=== PATIENT | female | born 1985 | race African-American/Black ===

== ENCOUNTER 2019-06-10 09:17 | Outpatient (RCR) | payer OTHER, MEDICAID, SELFPAY | END 2019-09-08 23:59 | disposition home or self-care (01) | LOC: ANHDMC 09:17 | PROVIDERS: PCP Internal Medicine; Visit Provider Internal Medicine | DX: E11.9 Type 2 diabetes mellitus without complications (principal); Z71.89 Other specified counseling | CPT/HCPCS: G0108 ==

== ENCOUNTER 2019-10-07 11:30 | Emergency (ER) | payer OTHER, MEDICAID, SELFPAY ==
[2019-10-07 11:43] VITALS: BP 123/75; PULSE 104; RESP 19; TEMP 36.7; O2SAT 100
[2019-10-07 12:11] LABS: Add Urine Microscopic? YES; Appearance Urine Clear (Clear); Bilirubin Urine Negative (Negative); Blood Urine Negative (Negative); Color Urine Straw (Yellow); Glucose Urine UA Negative (Negative); Ketones Urine Negative (Negative); Leukocyte Esterase Ur Trace LEU/UL (Negative); Mucus Urine Rare /lpf; Nitrate Urine Negative (Negative); Protein Urine Negative (Negative); Specific Grav Ur 1.014 (1.001-1.035); Squamous Epithelial Cell Urine Many /hpf (Few); Urobilinogen Urine Negative mg/dL (<2.0)
[2019-10-07 12:16] LABS: Basophils Percent Auto 0.3 % (0.2-1.2); Eosinophils Percent Auto 0.2 % (0-4.4); Immature Granulocyte Absolute 0.05 K/mm3 (0.00-0.031); Immature Granulocyte Percent A 0.5 % (0-0.5); Lymphocytes Absolute Auto 1.78 K/mm3 (0.9-3.2); Lymphocytes Percent Auto 16.1 % (18.3-44.2); Mean Corpuscular HGB Conc 32.5 g/dl (32-36); Mean Corpuscular Hemoglobin 28.1 pg (26-34); Mean Corpuscular Volume 86.6 fl (80-100); Mean Platelet Volume 10.3 fl (7.4-10.4); Monocytes Absolute Auto 1.1 K/mm3 (0.1-0.6); Monocytes Percent Auto 9.6 % (2.6-8.5); Neutrophils Absolute Auto 8.1 K/mm3 (1.3-6.7); Neutrophils Percent Auto 73.3 % (45.5-73.1); Platelet Count Result 277 k/mm3 (150-375); Red Blood Count 4.62 M/mm3 (4.2-5.4); Red Cell Distribution Width 14.5 % (11.5-14.5); White Blood Count 11.1 K/mm3 (4.5-10.0)
--- NOTE | 2019-10-07 12:27 | ED.ABDPAIN ---
HPI - Abdominal Pain General Chief Complaint: Back Pain/Injury Stated Complaint: R Side Pain Time Seen by Provider: 10/07/19 11:32 Source: patient Mode of arrival: ambulatory Limitations: no limitations History of Present Illness HPI narrative: Patient is a 34-year-old female who presents to emergency department for evaluation of pain to the right lower back that began yesterday noticed an aching pain worse with activity and movement denies injury trauma or recent illness took naproxen and muscle relaxer with minimal improvement patient on arrival in the room in no distress Related Data Home Medications Medication Instructions Recorded Confirmed atorvastatin 20 mg PO DAILY 07/25/19 07/25/19 metformin 500 mg PO BID 07/25/19 07/25/19 norgestimate-ethinyl estradiol 1 tablet PO DAILY 07/25/19 07/25/19 [Previfem] spironolactone 100 mg PO DAILY 07/25/19 07/25/19 tranexamic acid 650 mg tablet 1,300 mg PO TID tablet 10/05/19 Allergies Allergy/AdvReac Type Severity Reaction Status Date / Time No Known Allergies Allergy Verified 10/05/19 09:38 Review of Systems Review of Systems: All systems reviewed & are unremarkable except as noted in HPI and below PMFSH Past Medical History Medical History (Updated 10/07/19 @ 13:09 by Ha Arshad PA-C) Diabetes mellitus Social History Social History Smoking status: Never smoker Second hand tobacco smoke exposure: No Alcohol intake: current Substance use: never Gender identity (if verbalized by the patient): Female Exam Narrative: Exam Narrative: GENERAL: Well-appearing, morbidly obese, and in no acute distress. HEAD: Normocephalic, atraumatic. EYES: PERRLA and EOMI. ENT: Nares clear, no rhinorrhea or epistaxis. Mucous membranes moist. Oropharynx without tonsillar hypertrophy exudate or other lesions. CHEST: Clear to auscultation. No respiratory distress. No wheezes rales or rhonchi HEART: Regular rate and rhythm. No murmur heard. Normal peripheral pulses. ABDOMEN: Soft, nontender, nondistended EXTREMITIES: Normal range of motion. No edema. SKIN: Warm, dry, no rash. NEURO: No focal deficits. Alert and oriented x3. Cranial nerves II through XII grossly intact. Normal speech and gait PSYCH: Normal mood and affect. Course Course Emergency Course: Patient in the room in no distress aware of case findings treatment plan and diagnosis agreeing to follow-up as directed or to return if symptoms worsen or concerns Vital Signs Vital signs: Vital Signs Temperature 98.1 F 10/07/19 11:43 Pulse Rate 104 H 10/07/19 11:43 Respiratory Rate 19 10/07/19 11:43 Blood Pressure 123/75 10/07/19 11:43 Pulse Oximetry 100 10/07/19 11:43 Temperature 98.1 F 10/07/19 11:43 Pulse Rate 104 H 10/07/19 11:43 Respiratory Rate 19 10/07/19 11:43 Blood Pressure 123/75 10/07/19 11:43 Pulse Oximetry 100 10/07/19 11:43 MDM - Abdominal Pain MDM Narrative Medical decision making narrative: Patient is afebrile nontoxic-appearing no distress felt appropriate for outpatient reevaluation. Patients pain is positional in nature and localized to back without signs of cord compression or cauda equina based on neurological exam, skeletal exam and history. No fever or other significant factors to suggest osteomyelitis or spinal epidural abscess. No symptoms or signs to suggest pain is referred from abdominal or / cardiopulmonary sources. No pulsatile masses noted on exam. Patient ambulates with steady gait and is stable for outpatient management given case findings. Lab Data Result diagrams: 10/07/19 12:12 10/07/19 12:12 Labs: Lab Results 10/07/19 10/07/19 10/07/19 Range/Units 11:58 12:12 12:12 WBC 11.1 H (4.5-10.0) K/mm3 RBC 4.62 (4.2-5.4) M/mm3 Hgb 13.0 (12.0-15.0) g/dL Hct 40.0 (37.0-47.0) % MCV 86.6 (80-100) fl MCH 28.1 (26-34)
[2019-10-07 12:30] LABS: Blood Urea Nitrogen 10 mg/dL (7-17); Calcium 9.1 mg/dL (8.4-10.2); Carbon Dioxide 23 mmol/L (22-30); Chloride 99 mmol/L (98-107); Estimated CRCL calculation 135 ml/min; Estimated Glomerular Filt Rate > 60; Glucose 102 mg/dL (65-105); Potassium 4.1 mmol/L (3.4-5.0); Sodium 136 mmol/L (137-145)
[2019-10-07] MEDS: SODIUM CHLORIDE 0.9% IV 1,000 ML 999 ML IV CONT (12:44)
== END 2019-10-07 14:00 | disposition home or self-care (01) ==
PROVIDERS: Emergency Medicine Emergency Medical Services; Emergency Provider Emergency Medicine; PCP Internal Medicine
DX: M54.5 Low back pain (principal); E11.9 Type 2 diabetes mellitus without complications; Z79.84 Long term (current) use of oral hypoglycemic drugs
CPT/HCPCS: 36415; 80048; 81001; 81025; 85025; 96374; 99284; J0131; J7030

== ENCOUNTER 2019-10-12 09:03 | Outpatient (RCR) | payer OTHER, MEDICAID, SELFPAY | END 2020-01-10 23:59 | disposition home or self-care (01) | LOC: ANHDMC 09:03 | PROVIDERS: PCP Internal Medicine; Visit Provider Internal Medicine | DX: E11.9 Type 2 diabetes mellitus without complications (principal); Z71.89 Other specified counseling | CPT/HCPCS: G0108 ==

== ENCOUNTER 2021-09-11 10:58 | Outpatient (CLI) | payer BC, MEDICAID, SELFPAY ==
[2021-09-11 12:16] LABS: Squamous Epithelial Cell Urine Occasional /hpf (Few); WBC Urine 0-3 /hpf (0-3)
[2021-09-11 12:21] LABS: Add Urine Microscopic? NO; Appearance Urine Clear (Clear); Bilirubin Urine Negative (Negative); Blood Urine Negative (Negative); Color Urine Straw (Yellow); Glucose Urine UA Negative (Negative); Ketones Urine Negative (Negative); Leukocyte Esterase Ur Negative LEU/UL (NEGATIVE); Nitrate Urine Negative (Negative); Protein Urine Negative (Negative); Specific Grav Ur 1.013 (1.001-1.035); Urobilinogen Urine Negative mg/dL (<2.0)
== END 2021-09-11 10:59 | disposition home or self-care (01) ==
LOC: ANHLAB 11:02
PROVIDERS: PCP Internal Medicine; Visit Provider Physician Assistant
DX: R30.0 Dysuria (principal)
CPT/HCPCS: 81003; 87077; 87086; 87088

== ENCOUNTER 2022-10-05 12:37 | Emergency (ER) | payer BC, MEDICAID, SELFPAY ==
[2022-10-05 12:43] VITALS: BP 141/92; PULSE 90; RESP 16; TEMP 36.4; O2SAT 100
[2022-10-05 13:38] LABS: Appearance Urine Clear (Clear); Bacteria Urine None Seen /hpf; Bilirubin Urine Negative (Negative); Blood Urine Negative (Negative); Color Urine Yellow (Yellow); Glucose Urine UA Negative (Negative); Ketones Urine Negative (Negative); Leukocyte Esterase Ur 1+ LEU/UL (Negative); Need Manual Microscopic Reviewed; Nitrate Urine Negative (Negative); Non Pathogenic Casts 0-2; Protein Urine Negative (Negative); Squamous Epithelial Cell Urine Occasional /hpf (Few); WBC Urine 0-5 /hpf
[2022-10-05 13:42] LABS: Add Urine Microscopic? YES
--- NOTE | 2022-10-05 14:08 | ED.GENADULT ---
HPI - General Adult General Chief complaint: Urogenital-Female Stated complaint: Frequent urination Time Seen by Provider: 10/05/22 12:43 Related Data Home Medications Medication Instructions Recorded Confirmed norgestimate 0.25 mg-ethinyl 1 tablet PO DAILY 07/25/19 09/25/22 estradiol 35 mcg tablet (Previfem) norgestimate 0.25 mg-ethinyl 1 tablet PO DAILY 05/09/21 09/25/22 estradiol 35 mcg tablet ([place]-Linyah) spironolactone 100 mg tablet 50 mg PO DAILY 11/14/21 09/25/22 Allergies Allergy/AdvReac Type Severity Reaction Status Date / Time No Known Allergies Allergy Verified 10/05/22 12:45 [facility] Past Medical History Medical History Diabetes mellitus 2019 Hyperglycemia Hypothyroidism PCOS (polycystic ovarian syndrome) Family History Family History Father Patient's father is in good health High cholesterol Sibling Patient's brother is in good health Mother Patient's mother is in good health YAZAN on CPAP Heart disease Hypertension Social History Social History Social History: no kids. 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 Gender identity (if verbalized by the patient): Female Course Course Emergency Course: Ultrasound was ordered. Patient did not tolerate transvaginal exam. They could not get good visualization because patient did not have a full bladder. Asked patient to drink some water. Patient did so but then ultrasound did not return. Patient is not having pain at this time and does not wish to wait for ultrasound come back in from home to evaluate her. She will be discharged with antibiotics and I recommended she follow-up with her OB/[facility]. We will give her the name of someone here should she require it. Vital Signs Vital signs: Vital Signs Temperature 97.6 F 10/05/22 12:43 Pulse Rate 90 10/05/22 12:43 Respiratory Rate 16 10/05/22 12:43 Blood Pressure 141/92 H 10/05/22 12:43 Pulse Oximetry 100 10/05/22 12:43 Oxygen Delivery Room Air 10/05/22 12:43 Temperature 97.6 F 10/05/22 12:43 Pulse Rate 89 10/05/22 14:57 Respiratory Rate 18 10/05/22 14:57 Blood Pressure 112/71 10/05/22 14:57 Pulse Oximetry 100 10/05/22 14:57 Oxygen Delivery Room Air 10/05/22 12:43 Medical Decision Making Vital Signs Vital Signs: Vital Signs Temperature 97.6 F 10/05/22 12:43 Pulse Rate 90 10/05/22 12:43 Respiratory Rate 16 10/05/22 12:43 Blood Pressure 141/92 H 10/05/22 12:43 Pulse Oximetry 100 10/05/22 12:43 Oxygen Delivery Room Air 10/05/22 12:43 Temperature 97.6 F 10/05/22 12:43 Pulse Rate 89 10/05/22 14:57 Respiratory Rate 18 10/05/22 14:57 Blood Pressure 112/71 10/05/22 14:57 Pulse Oximetry 100 10/05/22 14:57 Oxygen Delivery Room Air 10/05/22 12:43 Lab Data Labs: Lab Results 10/05/22 Range/Units 13:09 Urine Color Yellow (Yellow) Urine Appearance Clear (Clear) Urine pH 7.0 (5.0-9.0) Ur Specific Kimberly 1.020 (1.001-1.035) Urine Protein Negative (Negative) mg/dL Urine Glucose (UA) Negative (Negative) mg/dL Urine Ketones Negative (Negative) mg/dL Ur Blood (Man) Negative (Negative) Urine Nitrate Negative (Negative) Urine Bilirubin Negative (Negative) Urine Urobilinogen 1.0 (<2.0)
[2022-10-05 14:57] VITALS: BP 112/71; PULSE 89; RESP 18; O2SAT 100
[2022-10-05] MEDS: CEPHALEXIN 500 MG CAPSULE PO (16:55)
[2022-10-05 17:12] VITALS: BP 112/69; PULSE 75; RESP 18; O2SAT 98
== END 2022-10-05 17:30 | disposition home or self-care (01) ==
PROVIDERS: Emergency Provider Emergency Medicine; PCP Internal Medicine
DX: N39.0 Urinary tract infection, site not specified (principal); R10.2 Pelvic and perineal pain; E03.9 Hypothyroidism, unspecified; E28.2 Polycystic ovarian syndrome
CPT/HCPCS: 81001; 99283; A9270

== ENCOUNTER 2023-01-11 18:14 | Emergency (ER) | payer BC, MEDICAID, SELFPAY ==
--- NOTE | 2023-01-11 18:17 | ED.GENADULT ---
HPI - General Adult General Chief complaint: Back Pain/Injury Stated complaint: left side pain Time Seen by Provider: 01/11/23 18:26 Source: patient, RN notes reviewed and old records reviewed Mode of arrival: ambulatory Limitations: no limitations History of Present Illness HPI narrative: 37-year-old female presents to the [facility] with left side pain. Patient has a history of thyroid disorder as well as diabetes. Symptoms started over a month ago. Thought it was stress at 1st. Has taken Tylenol and Motrin for pain states it helps for a little bit but then the pain returns. Denies any urinary symptoms. Denies abdominal pain. Denies midline tenderness. No loss retention of bowel or bladder. No saddle anesthesia. No numbness or tingling in extremities. Onset (ago): month(s) (1+) Location: buttocks and left ( Lower back) Radiation: non-radiation Severity: mild Related Data Home Medications Medication Instructions Recorded Confirmed norgestimate 0.25 mg-ethinyl 1 tablet PO DAILY 07/25/19 01/11/23 estradiol 35 mcg tablet (Previfem) norgestimate 0.25 mg-ethinyl 1 tablet PO DAILY 05/09/21 01/11/23 estradiol 35 mcg tablet ([place]-Linyah) spironolactone 100 mg tablet 50 mg PO DAILY 11/14/21 01/11/23 Allergies Allergy/AdvReac Type Severity Reaction Status Date / Time No Known Allergies Allergy Verified 01/11/23 18:26 Review of Systems Review of Systems: All systems reviewed & are unremarkable except as noted in HPI and below Constitutional: Constitutional: Reports no additional constitutional complaints Eyes: Eyes: Reports no additional eye complaints ENT: Reports system reviewed and no additional complaints, except as documented Cardiovascular: Cardiovascular: Reports no additional cardiovascular complaints, Denies chest pain and Denies dyspnea Respiratory: Respiratory: Reports no additional respiratory complaints, Denies chest congestion, Denies cough and Denies dyspnea Gastrointestinal: Gastrointestinal: Reports no additional gastrointestinal complaints, Denies abdominal pain, Denies nausea and Denies vomiting Musculoskeletal: Musculoskeletal: Reports as per HPI Integumentary/Breasts: Skin/Breast: Reports system reviewed and no additional complaints, except as docu Neurologic: Reports system reviewed and no additional complaints, except as documented Psychiatric: Psychiatric: Reports no additional psychiatric complaints Allergic/Immunologic: Allergic/Immunologic: Reports no additional allergic/immunologic complaints PMFSH Past Medical History Medical History Diabetes mellitus 2019 Hyperglycemia Hypothyroidism PCOS (polycystic ovarian syndrome) Family History Family History Father Patient's father is in good health High cholesterol Sibling Patient's brother is in good health Mother Patient's mother is in good health YAZAN on CPAP Heart disease Hypertension Social History Social History Social History: no kids. 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 Gender identity (if verbalized by the patient): Female Comments At the time of my signature, I reviewed and agree with the nursing past medical, surgical, social, and family history. There is no relevant family history pertinent to the patient complaint.
[2023-01-11 18:24] VITALS: BP 116/81; PULSE 99; RESP 16; TEMP 36.6; O2SAT 100
== END 2023-01-11 18:39 | disposition home or self-care (01) ==
PROVIDERS: Emergency Provider Nurse Practitioner; PCP Internal Medicine
DX: S39.012A Strain of muscle, fascia and tendon of lower back, initial encounter (principal); X58.XXXA Exposure to other specified factors, initial encounter; E11.9 Type 2 diabetes mellitus without complications; E03.9 Hypothyroidism, unspecified; E28.2 Polycystic ovarian syndrome
CPT/HCPCS: 99213; G0463

== ENCOUNTER 2023-01-14 15:12 | Outpatient (CLI) | payer BC, MEDICAID, SELFPAY ==
--- NOTE | ~2023-01-14 | XR_ITS ---
XR lumbar spine 2-3V DATE: 01/14/2023 15:40 INDICATION: Back pain for one month. No injury. TECHNIQUE: AP, lateral, coned lateral lumbosacral views COMPARISON: None FINDINGS: There is mild degenerative spurring of the lumbar spine. Lumbar levels interspaces are rela tively preserved. There is some degenerative spurring, most prominent on the left at L3-4 No fracture or bone destruction is evident. Included lower thoracic and lumbar pedicles are intact. The sacroiliac joints are intact. IMPRESSION: Mild degenerative change Reviewed, dictated and finalized at location A. IMPRESSION: Mild degenerative change
== END 2023-01-14 15:13 | disposition home or self-care (01) ==
PROVIDERS: PCP Internal Medicine; Visit Provider Internal Medicine
DX: M54.9 Dorsalgia, unspecified (principal)
CPT/HCPCS: 72100

== ENCOUNTER 2023-03-25 01:09 | Emergency (ER) | payer BC, MEDICAID, SELFPAY ==
--- NOTE | ~2023-03-25 | XR_ITS ---
EXAMINATION: XR elbow RT min 3V DATE: 03/25/2023 02:54 INDICATION: Right elbow pain. TECHNIQUE: 4 views of right elbow were obtained. COMPARISON: None. FINDINGS: Bone alignment is normal. No fracture. Joint spaces are normal. No joint effusion. IMPRESSION: 1. No fracture. Reviewed, dictated and finalized at location A. IMPRESSION: 1. No fracture.
[2023-03-25 01:52] VITALS: BP 124/80; PULSE 100; RESP 16; TEMP 36.4; O2SAT 100
[2023-03-25 03:39] VITALS: BP 126/80; PULSE 87; RESP 19; TEMP 36.8; O2SAT 100
[2023-03-25 04:43] VITALS: BP 136/78; PULSE 84; RESP 15; O2SAT 97
[2023-03-25] MEDS: HYDROcodone/acetaminophen (*CRX) 5-325 MG TABLET 1 TAB PO (05:16)
[2023-03-25] MEDS: methocarbamoL 750 MG TABLET 1500 MG PO (05:18)
[2023-03-25] MEDS: KETOROLAC 30 MG/ML VIAL (*BKC) IM (05:18)
--- NOTE | 2023-03-25 06:35 | ED.GENADULT ---
HPI - General Adult General Chief complaint: Extremity Injury, Upper Stated complaint: right elbow pain Time Seen by Provider: 03/25/23 04:31 History of Present Illness HPI narrative: This is a 37-year-old female presenting ED with chief complaint of right elbow pain. Patient said the pain started last night while she was watching TV. It is a throbbing pain that goes from about midway down the lateral side of her humerus just past her elbow. It is worse with movement of the elbow. She denies fevers, swelling, erythema of the joint. She denies any traumatic events. Related Data Home Medications Medication Instructions Recorded Confirmed norgestimate 0.25 mg-ethinyl 1 tablet PO DAILY 07/25/19 01/30/23 estradiol 35 mcg tablet (Previfem) norgestimate 0.25 mg-ethinyl 1 tablet PO DAILY 05/09/21 01/30/23 estradiol 35 mcg tablet ([place]-Linyah) spironolactone 100 mg tablet 50 mg PO DAILY 11/14/21 01/30/23 Allergies Allergy/AdvReac Type Severity Reaction Status Date / Time No Known Allergies Allergy Verified 01/29/23 10:59 [facility] Past Medical History Medical History Diabetes mellitus 2019 Hyperglycemia Hypothyroidism PCOS (polycystic ovarian syndrome) Family History Family History Father Patient's father is in good health High cholesterol Sibling Patient's brother is in good health Mother Patient's mother is in good health YAZAN on CPAP Heart disease Hypertension Social History Social History Social History: no kids. 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 Gender identity (if verbalized by the patient): Female Exam Narrative: APPEARANCE: No apparent distress. Head: atraumatic. EYES: EOMI, NOSE: Atraumatic NECK: Trachea midline RESPIRATORY: No increased rate of breathing CARDIOVASCULAR: RRR, ABDOMINAL: Non-distended MUSCULOSKELETAl: focal exam of the right elbow revealed no erythema, swelling or warmth. Pain on active and passive range of motion. tenderness to palpation on the elbow and above the elbow on the humerus. No overlying skin changes. Pulses are +2 in the Radian ulnar distribution and cap refill is less than 2 seconds NEURO: Alert. Moving 4/4 extremities SKIN:: Warm, dry. Normal color PSYCHIATRIC: Normal affect Course Vital Signs Vital signs: Vital Signs Temperature 97.5 F L 03/25/23 01:52 Pulse Rate 100 03/25/23 01:52 Respiratory Rate 16 03/25/23 01:52 Blood Pressure 124/80 03/25/23 01:52 Pulse Oximetry 100 03/25/23 01:52 Oxygen Delivery Room Air 03/25/23 01:52 Temperature 98.2 F 03/25/23 03:39 Pulse Rate 84 03/25/23 04:43 Respiratory Rate 15 03/25/23 04:43 Blood Pressure 136/78 03/25/23 04:43 Pulse Oximetry 97 03/25/23 04:43 Oxygen Delivery Room Air 03/25/23 01:52 Medical Decision Making [facility] Narrative Medical decision making narrative: -Presentation: 37-year-old female presenting with atraumatic elbow pain. Physical exam is unremarkable without evidence of swelling, erythema, or warmth. septic arthritis unlikely. No significant effusion of which to tap. X-ray is unremarkable. neurovascularly intact. Suspect this might be a neuropathy from the patient's hypothyroid or diabetes. Patient will be trialed on a course of NSAIDs and given primary
[2023-03-25 06:52] VITALS: BP 134/82; PULSE 88; RESP 14; O2SAT 99
== END 2023-03-25 06:52 | disposition home or self-care (01) ==
PROVIDERS: Emergency Provider Emergency Medicine; PCP Internal Medicine
DX: M25.521 Pain in right elbow (principal); E11.9 Type 2 diabetes mellitus without complications; E03.9 Hypothyroidism, unspecified; E28.2 Polycystic ovarian syndrome; Z79.84 Long term (current) use of oral hypoglycemic drugs
CPT/HCPCS: 73080; 96372; 99283; A9270; J1885

== ENCOUNTER 2023-05-09 11:45 | Emergency (ER) | payer BC, MEDICAID, SELFPAY ==
--- NOTE | ~2023-05-09 | XR_ITS ---
XR ankle LT min 3V DATE: 05/09/2023 12:17 INDICATION: Fall. Left ankle pain, swelling TECHNIQUE: 4 views COMPARISON: None FINDINGS: There is soft tissue swelling the ankle, most prominent medially. No apparent recent fractu re or dislocation is noted. Ankle mortise appears intact. Plantar and posterior calcaneal enthesopathy. IMPRESSION: Soft tissue swelling, greater medially No definite recent fracture or dislocation Reviewed, dictated and finalized at location B.
[2023-05-09 11:48] VITALS: BP 133/82; PULSE 93; RESP 16; TEMP 36.4; O2SAT 98
--- NOTE | 2023-05-09 12:43 | ED.LOWEXIN ---
HPI - Extremity Injury (Lower) General Chief Complaint: Extremity Injury, Lower Stated Complaint: fall/left ankle pain Time Seen by Provider: 05/09/23 12:02 Source: patient Mode of arrival: wheelchair Limitations: no limitations History of Present Illness HPI Narrative: This is a 37 year old female who presents for evaluation of left ankle injury. She states she accidentally injured her left ankle after falling down 2-3 steps. She denies hitting head or LOC. She states she heard a pop. She has left ankle swelling and pain. She took tylenol for her pain prior to coming to ER. She is also on celebrex for pain. complaint: ankle injury Onset (ago): hour(s) Injury: Left: ankle Place: home Exacerbating factors: weight bearing Context: fall Associated symptoms: snap/pop sensation and swelling Other symptoms: none Related Data Home Medications Medication Instructions Recorded Confirmed norgestimate 0.25 mg-ethinyl 1 tablet PO DAILY 07/25/19 03/27/23 estradiol 35 mcg tablet (Previfem) norgestimate 0.25 mg-ethinyl 1 tablet PO DAILY 05/09/21 03/27/23 estradiol 35 mcg tablet ([place]-Linyah) spironolactone 100 mg tablet 50 mg PO DAILY 11/14/21 03/27/23 Allergies Allergy/AdvReac Type Severity Reaction Status Date / Time No Known Allergies Allergy Verified 03/27/23 07:43 Review of Systems Review of Systems: All systems reviewed & are unremarkable except as noted in HPI and below PMFSH Past Medical History Medical History Diabetes mellitus 2019 Hyperglycemia Hypothyroidism PCOS (polycystic ovarian syndrome) Family History Family History Father Patient's father is in good health High cholesterol Sibling Patient's brother is in good health Mother Patient's mother is in good health YAZAN on CPAP Heart disease Hypertension Social History Social History Social History: no kids. 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 Gender identity (if verbalized by the patient): Female Exam Const: General: no acute distress and alert Nutritional Appearance: obese HENMT: Head: normal to inspection Resp: Effort & Inspection: normal respiratory effort Skin: General skin exam: normal color Rashes: no rashes Wounds: no wounds Neuro: General: patient oriented x3, moves all extremities and CN's II-XI intact bilaterally Extrem: Other: left ankle with TTP lateral malleolus. swelling to ankle, achilles tendon intact, no foot tenderness Psych: Mental Status: mental status grossly normal Affect: normal affect Attitude: cooperative Course Reevaluation(s) Date: 05/09/23 Time: 12:43 Vital Signs Vital signs: Vital Signs Temperature 97.6 F 05/09/23 11:48 Pulse Rate 93 05/09/23 11:48 Respiratory Rate 16 05/09/23 11:48 Blood Pressure 133/82 05/09/23 11:48 Pulse Oximetry 98 05/09/23 11:48 Oxygen Delivery Room Air 05/09/23 11:48 Temperature 97.6 F 05/09/23 11:48 Pulse Rate 93 05/09/23 11:48 Respiratory Rate 16 05/09/23 11:48 Blood Pressure 133/82 05/09/23 11:48 Pulse Oximetry 98 05/09/23 11:48 Oxygen Delivery Room Air 05/09/23 11:48 MDM - Extremity Injury (Lower) MDM Narrative Medical decision making narrative: patient had left ankle xray with no fracture. I wrapped ankl
== END 2023-05-09 13:10 | disposition home or self-care (01) ==
PROVIDERS: Emergency Provider General Practice; PCP Internal Medicine
DX: S93.402A Sprain of unspecified ligament of left ankle, initial encounter (principal); E11.9 Type 2 diabetes mellitus without complications; E03.9 Hypothyroidism, unspecified; E28.2 Polycystic ovarian syndrome; Z79.84 Long term (current) use of oral hypoglycemic drugs; W10.9XXA Fall (on) (from) unspecified stairs and steps, initial encounter
CPT/HCPCS: 73610; 99283